=== PATIENT | female | born 1985 | race Two or more races ===

== ENCOUNTER 2022-12-27 21:34 | Emergency (ER) | payer SELFPAY ==
[~2022-12-27] VITALS: Ht 167.6 cm; Wt 65.2 kg
[2022-12-27 22:22] VITALS: BP 129/83; PULSE 68; RESP 20; TEMP 98.1; O2SAT 99
[2022-12-28] MEDS ORDERED: TETANUS-DIPTH-ACEL PERTUSSIS 0.5ML SYR Tdap IM ONE (01:45)
[2022-12-28] MEDS ORDERED: ACETAMINOPHEN 500 MG TAB PO ONE (01:45)
[2022-12-28] MEDS ORDERED: CEPH500C PO (02:07)
== END 2022-12-28 05:15 | disposition home or self-care (01) ==
LOC: ER 21:34
DX: S91.311A Laceration without foreign body, right foot, initial encounter (principal); W25.XXXA Contact with sharp glass, initial encounter; Y93.89 Activity, other specified; Y92.89 Other specified places as the place of occurrence of the external cause; Y99.8 Other external cause status
CPT/HCPCS: 73630; 90471; 90715